=== PATIENT | male | born 1965 | race Caucasian/White ===

== ENCOUNTER 2018-02-03 13:18 | Emergency (ER) | payer MEDICAID, MEDICARE, SELFPAY ==
[~2018-02-03] VITALS: Ht 177.8 cm; Wt 100.0 kg
[2018-02-03] MEDS ORDERED: LORazepam 2 MG/ML, 1ML ONE (13:43)
[2018-02-03 13:54] LABS: BASOPHILS # (AUTO) 0.08 x10^3/uL (0-0.1); BASOPHILS % (AUTO) 1 % (0-1); EOSINOPHILS # (AUTO) 0.29 x10^3/uL (0-0.4); EOSINOPHILS % (AUTO) 3 % (1-7); LYMPHOCYTES # (AUTO) 1.64 x10^3/uL (1-3.4); LYMPHOCYTES % (AUTO) 14 % (22-44); MD NO; MEAN CORPUSCULAR HEMOGLOBIN 29.9 pg (27.5-34.5); MEAN CORPUSCULAR HGB CONC 33.5 g/dL (33.2-36.2); MEAN CORPUSCULAR VOLUME 89.3 fL (81-97); MEAN PLATELET VOLUME 7.9 fL (7.4-10.4); MONOCYTES # (AUTO) 0.72 x10^3/uL (0.2-0.8); MONOCYTES % (AUTO) 6 % (2-9); NEUTROPHILS # (AUTO) 8.68 x10^3/uL (1.8-6.8); NEUTROPHILS % (AUTO) 76 % (42-75); PLATELET COUNT 321 x10^3/uL (130-400); RED BLOOD COUNT 5.77 x10^6/uL (4.38-5.82); RED CELL DISTRIBUTION WIDTH 14.6 % (9.4-14.8)
[2018-02-03] MEDS ORDERED: LORazepam 2 MG/ML, 1ML IM ONE (14:00)
[2018-02-03 14:09] LABS: ALBUMIN 3.9 g/dL (3.4-5.0); ANION GAP 8 mmol/L (5-15); CALCIUM 8.6 mg/dL (8.5-10.1); CHLORIDE 112 mmol/L (98-107)
[2018-02-03 14:12] LABS: ALANINE AMINOTRANSFERASE 27 U/L (12-78); ALKALINE PHOSPHATASE 115 U/L (45-117); BILIRUBIN,TOTAL 0.6 mg/dL (0.2-1.0); CREATININE 0.88 mg/dL (0.7-1.3)
[2018-02-03 14:16] LABS: TROPONIN I < 0.015 ng/mL (0.000-0.045)
[2018-02-03] MEDS ORDERED: LORazepam 1MG TABLET PO ONE (15:30)
[2018-02-03 15:34] LABS: AMPHETAMINE SCREEN, URINE Negative (Negative); BARBITURATE SCREEN, URINE Negative (Negative); BENZODIAZEPINE SCREEN, URINE Positive (Negative); CANNABINOID SCREEN, URINE Positive (Negative); COCAINE SCREEN, URINE Negative (Negative); METHADONE SCREEN, URINE Negative (Negative); OPIATE SCREEN, URINE Negative (Negative)
[2018-02-03] MEDS ORDERED: LORazepam 1MG TABLET ONE (15:46)
[2018-02-03 16:24] VITALS: BP 124/92
== END 2018-02-03 16:45 | disposition home or self-care (01) ==
LOC: ED 16:40
DX: G24.01 Drug induced subacute dyskinesia (principal); T43.4X5A Adverse effect of butyrophenone and thiothixene neuroleptics, initial encounter; F20.9 Schizophrenia, unspecified; F17.210 Nicotine dependence, cigarettes, uncomplicated; R05 Cough; R50.9 Fever, unspecified; Z79.899 Other long term (current) drug therapy; Y92.89 Other specified places as the place of occurrence of the external cause
CPT/HCPCS: 36415; 71045; 80053; 80307; 84484; 85025; 93005; 96372; 99285; J2060

== ENCOUNTER 2018-11-30 22:14 | Inpatient (IN) | payer MEDICAID ==
[~2018-11-30] VITALS: Ht 182.9 cm; Wt 96.5 kg
[2018-12-10 07:41] VITALS: BP 109/65
== END 2018-12-10 10:30 | disposition home or self-care (01) | DRG 750 ==
LOC: 3E 23:09
PROVIDERS: ADMIT Psychiatry & Neurology Psychosomatic Medicine; ATTEND Psychiatry & Neurology Psychosomatic Medicine
DX: F20.0 Paranoid schizophrenia (principal); R45.851 Suicidal ideations; F13.20 Sedative, hypnotic or anxiolytic dependence, uncomplicated; E03.9 Hypothyroidism, unspecified; E78.5 Hyperlipidemia, unspecified; F12.20 Cannabis dependence, uncomplicated; F17.200 Nicotine dependence, unspecified, uncomplicated; F32.9 Major depressive disorder, single episode, unspecified; G47.00 Insomnia, unspecified; J44.9 Chronic obstructive pulmonary disease, unspecified; Z79.899 Other long term (current) drug therapy; Z82.49 Family history of ischemic heart disease and other diseases of the circulatory system; Z88.0 Allergy status to penicillin; Z88.8 Allergy status to other drugs, medicaments and biological substances
CPT/HCPCS: 36415; 71045; 80061; 81003; 82140; 82607; 84439; 84443; 85651; 86592; 93005; 94640; J7613; J7626

== ENCOUNTER 2019-11-12 09:07 | Inpatient (IN) | payer MEDICAID ==
[~2019-11-12] VITALS: Ht 182.9 cm; Wt 83.9 kg
[~2019-11-12 09:07] MED LIST: ALBU6.7H8 INH; ATOR20TA37 PO; CYCL-259 PO; DEUT12TA PO; DIAZ10TA4 PO; FLUT1AER INH; LEVO25TA2 PO; LEVO25TA4 PO; NICO-487 TD; PARO20TA4 PO; PARO20TA98 PO; QUET200T PO; QUET25TA7 PO; RANI300C PO; TIOT18CA INH; TRAZ-175 PO; TRAZ5POW PO; TRIH2TAB3 PO; ZIPR80CA2 PO
--- NOTE | 2019-11-12 09:51 | NUR ---
Pt resting on gurney connected to NIBP cuff, cardiac monitors, and pulse ox. Pt has chronic bronchitis pmh and a "smokers cough". Pt has psych pmh and his healthcare advocate at bedside with pt's verbal consent. Pt has lost 30 lbs in the last three weeks from decreased appetite related to caregiver absences. Pt is a poor historian. Bedrails up x 2, call light within reach. Caregiver at bedside. Provided bedside report to BRENDA Wagner. All questions answered. BRENDA Wagner to assume care at this time.
[2019-11-12] MEDS ORDERED: SODIUM CHLORIDE 0.9% 1,000ML IVBOLUS ONE ×2 (10:00→11:30)
[2019-11-12] MEDS ORDERED: SODIUM CHLORIDE FLUSH 10ML SYR IVF ONE (10:00)
[2019-11-12 10:39] LABS: BASOPHILS # (AUTO) 0.05 x10^3/uL (0-0.1); BASOPHILS % (AUTO) 0 % (0-1); EOSINOPHILS # (AUTO) 0.34 x10^3/uL (0-0.4); EOSINOPHILS % (AUTO) 3 % (1-7); LYMPHOCYTES # (AUTO) 1.54 x10^3/uL (1-3.4); LYMPHOCYTES % (AUTO) 14 % (22-44); MD NO; MEAN CORPUSCULAR HEMOGLOBIN 30.4 pg (27.5-34.5); MEAN CORPUSCULAR HGB CONC 33.1 g/dL (33.2-36.2); MEAN CORPUSCULAR VOLUME 91.9 fL (81-97); MEAN PLATELET VOLUME 10.6 fL (7.4-10.4); MONOCYTES % (AUTO) 8 % (2-9); NEUTROPHILS # (AUTO) 8.46 x10^3/uL (1.8-6.8); NEUTROPHILS % (AUTO) 75 % (42-75); PLATELET COUNT 209 x10^3/uL (130-400); RED BLOOD COUNT 5.63 x10^6/uL (4.38-5.82)
[2019-11-12 10:51] LABS: ANION GAP 8 mmol/L (5-15); CALCIUM 9.5 mg/dL (8.5-10.1); CHLORIDE 108 mmol/L (98-107); CREATININE 1.12 mg/dL (0.7-1.3)
[2019-11-12 10:52] LABS: ALANINE AMINOTRANSFERASE 16 U/L (12-78)
[2019-11-12 10:56] LABS: ALKALINE PHOSPHATASE 84 U/L (45-117); BILIRUBIN,TOTAL 1.4 mg/dL (0.2-1.0); TOTAL PROTEIN 7.5 g/dL (6.4-8.2); TROPONIN I < 0.015 ng/mL (0.000-0.045)
[2019-11-12] MEDS ORDERED: POTASSIUM CHLORIDE 20 MEQ PACKET ONE (11:23)
[2019-11-12] MEDS ORDERED: POTASSIUM CHLORIDE 20 MEQ PACKET PO ONE (11:30)
--- NOTE | 2019-11-12 11:30 | NUR ---
PT MEDICATED PER JUN. RESTING IN [facility]. VSS. NAD. PT EDUCATED ON PLAN OF CARE
[2019-11-12] MEDS: SODIUM CHLORIDE 0.9% 1,000 ML IV SCH ×2 (12:10→23:49)
--- NOTE | 2019-11-12 12:29 | NUR ---
PT RESTING IN [facility]. TBADM. EKG COMPLETE
[2019-11-12] MEDS ORDERED: POTASSIUM CHLORIDE 20 MEQ TAB.ER.PRT PO ONE (12:30)
[2019-11-12] MEDS ORDERED: CYCLOBENZAPRINE 10 MG TABLET PO PRN (12:30)
[2019-11-12] MEDS ORDERED: ONDANSETRON 2MG/ML, 2ML IVPush PRN (12:30)
[2019-11-12] MEDS ORDERED: ONDANSETRON ODT 4 MG PO PRN (12:30)
[2019-11-12] MEDS ORDERED: TRAZODONE 100MG TABLET PO PRN (14:00)
[2019-11-12 14:18] VITALS: BP 94/58
[2019-11-12] MEDS: QUETIAPINE 25MG TABLET PO SCH (14:22)
[2019-11-12] MEDS: HEPARIN 5,000 UNITS/ML, 1ML SQ SCH ×2 (14:22→23:48)
[2019-11-12] MEDS ORDERED: ALBUTEROL INH PRN (14:30)
[2019-11-12] MEDS: ALBUTEROL HFA 90 MCG/SPRAY INH SCH ×3 (15:16→23:00)
[2019-11-12] MEDS ORDERED: DIAZEPAM 10 MG TABLET ONE (16:54)
[2019-11-12] MEDS: DIAZEPAM 10 MG TABLET PO SCH ×2 (16:56→20:48)
[2019-11-12 20:40] VITALS: BP 94/63
[2019-11-12 20:43] VITALS: BP 81/51
[2019-11-12 20:44] VITALS: BP 70/47
[2019-11-12] MEDS: TRIHEXYPHENIDYL 2MG TABLET PO SCH (20:47)
[2019-11-12] MEDS: FAMOTIDINE 40 MG TABLET PO SCH (20:48)
[2019-11-12] MEDS: ATORVASTATIN 20 MG TABLET PO SCH (20:49)
[2019-11-12] MEDS: DEUTETRABENAZINE HOMEMEDPO SCH (20:50)
[2019-11-12] MEDS ORDERED: TRAZODONE 150MG TABLET PO SCH (21:00)
[2019-11-12] MEDS ORDERED: QUETIAPINE 200 MG TABLET PO SCH (21:00)
[2019-11-12] MEDS ORDERED: TRAZODONE 100MG TABLET PO SCH (21:00)
[2019-11-12] MEDS ORDERED: ZIPRASIDONE 40MG CAPSULE PO SCH (21:00)
[2019-11-12] MEDS ORDERED: HEPARIN 5,000 UNITS/ML, 1ML ONE (22:05)
[2019-11-12] MEDS ORDERED: QUETIAPINE 25MG TABLET ONE (22:10)
[2019-11-12 22:37] LABS: MICROSCOPIC INDICATED
[2019-11-13] MEDS: ALBUTEROL HFA 90 MCG/SPRAY INH SCH ×6 (03:00→23:00)
[2019-11-13 03:15] VITALS: BP 94/64
[2019-11-13 04:37] LABS: BASOPHILS # (AUTO) 0.05 x10^3/uL (0-0.1); BASOPHILS % (AUTO) 1 % (0-1); EOSINOPHILS # (AUTO) 0.45 x10^3/uL (0-0.4); EOSINOPHILS % (AUTO) 6 % (1-7); LYMPHOCYTES # (AUTO) 2.51 x10^3/uL (1-3.4); LYMPHOCYTES % (AUTO) 31 % (22-44); MD NO; MEAN CORPUSCULAR HEMOGLOBIN 29.8 pg (27.5-34.5); MEAN CORPUSCULAR HGB CONC 31.8 g/dL (33.2-36.2); MEAN CORPUSCULAR VOLUME 93.6 fL (81-97); MEAN PLATELET VOLUME 9.2 fL (7.4-10.4); MONOCYTES # (AUTO) 0.73 x10^3/uL (0.2-0.8); MONOCYTES % (AUTO) 9 % (2-9); NEUTROPHILS # (AUTO) 4.29 x10^3/uL (1.8-6.8); NEUTROPHILS % (AUTO) 53 % (42-75); PLATELET COUNT 182 x10^3/uL (130-400); RED BLOOD COUNT 4.58 x10^6/uL (4.38-5.82)
[2019-11-13 04:46] LABS: ALANINE AMINOTRANSFERASE 10 U/L (12-78); ALBUMIN 2.6 g/dL (3.4-5.0); ANION GAP 4 mmol/L (5-15); CALCIUM 8.1 mg/dL (8.5-10.1); CHLORIDE 113 mmol/L (98-107); CREATININE 0.92 mg/dL (0.7-1.3)
[2019-11-13 04:48] LABS: ALKALINE PHOSPHATASE 55 U/L (45-117); BILIRUBIN,TOTAL 0.7 mg/dL (0.2-1.0); TOTAL PROTEIN 5.2 g/dL (6.4-8.2)
[2019-11-13] MEDS: LEVOTHYROXINE 25 MCG TABLET PO SCH (05:08)
[2019-11-13 06:09] VITALS: BP 90/61
[2019-11-13] MEDS ORDERED: POTASSIUM CHLORIDE 20 MEQ TAB.ER.PRT PO ONE (06:30)
[2019-11-13 07:13] VITALS: BP 97/70
[2019-11-13] MEDS: DIAZEPAM 10 MG TABLET PO SCH ×4 (09:00→22:15)
[2019-11-13] MEDS: PAROXETINE 20 MG TABLET PO SCH (09:00)
[2019-11-13] MEDS: DEUTETRABENAZINE HOMEMEDPO SCH ×2 (09:00→20:28)
[2019-11-13] MEDS ORDERED: SPIRIVA INH SCH (09:00)
[2019-11-13] MEDS: QUETIAPINE 25MG TABLET PO SCH ×2 (09:00→13:00)
[2019-11-13] MEDS: TIOTROPIUM BROMIDE 18 MCG/INH INH SCH (09:22)
[2019-11-13] MEDS: FAMOTIDINE 40 MG TABLET PO SCH ×2 (09:22→20:28)
[2019-11-13] MEDS: NICOTINE 21 MG/24 HR PATCH.TD24 TD SCH (09:24)
[2019-11-13] MEDS: SODIUM CHLORIDE 0.9% 1,000 ML IV SCH ×2 (09:25→19:18)
[2019-11-13] MEDS: FLUTICASONE/VILANTEROL 100-25MCG/INH INH SCH (10:31)
[2019-11-13] MEDS: HEPARIN 5,000 UNITS/ML, 1ML SQ SCH (11:48)
[2019-11-13 13:03] VITALS: BP 104/70
[2019-11-13] MEDS: ATORVASTATIN 20 MG TABLET PO SCH (20:28)
[2019-11-13] MEDS: TRIHEXYPHENIDYL 2MG TABLET PO SCH (20:28)
[2019-11-13 20:52] VITALS: BP 97/63
[2019-11-14] MEDS: HEPARIN 5,000 UNITS/ML, 1ML SQ SCH ×2 (00:42→12:30)
[2019-11-14 00:49] VITALS: BP 100/62
[2019-11-14] MEDS: ALBUTEROL HFA 90 MCG/SPRAY INH SCH ×6 (03:00→23:01)
[2019-11-14] MEDS: SODIUM CHLORIDE 0.9% 1,000 ML IV SCH (06:36)
[2019-11-14] MEDS: LEVOTHYROXINE 25 MCG TABLET PO SCH (06:37)
[2019-11-14 07:09] VITALS: BP 107/71
[2019-11-14] MEDS: FLUTICASONE/VILANTEROL 100-25MCG/INH INH SCH (09:00)
[2019-11-14] MEDS: TIOTROPIUM BROMIDE 18 MCG/INH INH SCH (09:00)
[2019-11-14] MEDS: DEUTETRABENAZINE HOMEMEDPO SCH ×2 (09:00→20:40)
[2019-11-14] MEDS: FAMOTIDINE 40 MG TABLET PO SCH ×2 (09:13→20:39)
[2019-11-14] MEDS: PAROXETINE 20 MG TABLET PO SCH (09:13)
[2019-11-14] MEDS: NICOTINE 21 MG/24 HR PATCH.TD24 TD SCH (09:13)
[2019-11-14 14:35] VITALS: BP 102/65
[2019-11-14] MEDS: DIAZEPAM 10 MG TABLET PO SCH ×2 (16:00→20:39)
[2019-11-14 19:23] VITALS: BP 108/71
[2019-11-14] MEDS: TRIHEXYPHENIDYL 2MG TABLET PO SCH (20:39)
[2019-11-14] MEDS: ATORVASTATIN 20 MG TABLET PO SCH (20:39)
[2019-11-14] MEDS: QUETIAPINE 25MG TABLET PO SCH (20:39)
[2019-11-15 00:21] VITALS: BP 107/75
[2019-11-15] MEDS: HEPARIN 5,000 UNITS/ML, 1ML SQ SCH ×2 (00:28→12:09)
[2019-11-15 00:29] VITALS: BP 104/72
[2019-11-15 00:34] VITALS: BP 104/65
[2019-11-15] MEDS: ALBUTEROL HFA 90 MCG/SPRAY INH SCH ×6 (04:16→23:08)
[2019-11-15] MEDS: LEVOTHYROXINE 25 MCG TABLET PO SCH (05:22)
[2019-11-15 07:10] VITALS: BP 94/68
[2019-11-15] MEDS: FAMOTIDINE 40 MG TABLET PO SCH ×2 (08:04→20:25)
[2019-11-15] MEDS: QUETIAPINE 25MG TABLET PO SCH ×2 (08:04→20:25)
[2019-11-15] MEDS: NICOTINE 21 MG/24 HR PATCH.TD24 TD SCH (08:04)
[2019-11-15] MEDS: DIAZEPAM 10 MG TABLET PO SCH ×3 (08:04→20:24)
[2019-11-15] MEDS: PAROXETINE 20 MG TABLET PO SCH (08:04)
[2019-11-15] MEDS: DEUTETRABENAZINE HOMEMEDPO SCH ×2 (08:05→20:25)
[2019-11-15] MEDS: FLUTICASONE/VILANTEROL 100-25MCG/INH INH SCH (08:05)
[2019-11-15] MEDS: TIOTROPIUM BROMIDE 18 MCG/INH INH SCH (08:05)
[2019-11-15 12:38] VITALS: BP 89/50
[2019-11-15] MEDS: ACETAMINOPHEN 325 MG TABLET PO PRN (13:18)
[2019-11-15 19:08] VITALS: BP 96/68
[2019-11-15] MEDS: TRIHEXYPHENIDYL 2MG TABLET PO SCH (20:24)
[2019-11-15] MEDS: ATORVASTATIN 20 MG TABLET PO SCH (20:24)
[2019-11-16] MEDS: HEPARIN 5,000 UNITS/ML, 1ML SQ SCH ×3 (00:39→23:10)
[2019-11-16 01:04] VITALS: BP 100/61
[2019-11-16] MEDS: ALBUTEROL HFA 90 MCG/SPRAY INH SCH ×6 (02:53→23:10)
[2019-11-16] MEDS: LEVOTHYROXINE 25 MCG TABLET PO SCH (05:44)
[2019-11-16 07:11] VITALS: BP 120/82
[2019-11-16] MEDS: DEUTETRABENAZINE HOMEMEDPO SCH ×2 (08:06→21:00)
[2019-11-16] MEDS: FLUTICASONE/VILANTEROL 100-25MCG/INH INH SCH (08:06)
[2019-11-16] MEDS: PAROXETINE 20 MG TABLET PO SCH (08:07)
[2019-11-16] MEDS: DIAZEPAM 10 MG TABLET PO SCH ×3 (08:07→21:16)
[2019-11-16] MEDS: FAMOTIDINE 40 MG TABLET PO SCH ×2 (08:07→21:16)
[2019-11-16] MEDS: QUETIAPINE 25MG TABLET PO SCH ×2 (08:07→21:17)
[2019-11-16] MEDS: NICOTINE 21 MG/24 HR PATCH.TD24 TD SCH (08:07)
[2019-11-16] MEDS: TIOTROPIUM BROMIDE 18 MCG/INH INH SCH (09:22)
[2019-11-16 12:29] VITALS: BP 107/75
[2019-11-16 12:30] VITALS: BP_SYST 108; BP_SYST 96; BP_DIAS 72; BP_DIAS 80
[2019-11-16 19:55] VITALS: BP 96/61
[2019-11-16] MEDS: ATORVASTATIN 20 MG TABLET PO SCH (21:16)
[2019-11-16] MEDS: TRIHEXYPHENIDYL 2MG TABLET PO SCH (21:16)
[2019-11-17] VITALS (8 sets, daily range): BP systolic 79–106; BP diastolic 51–74
[2019-11-17] MEDS: ALBUTEROL HFA 90 MCG/SPRAY INH SCH ×5 (02:46→20:03)
[2019-11-17] MEDS: LEVOTHYROXINE 25 MCG TABLET PO SCH (05:13)
[2019-11-17] MEDS: PAROXETINE 20 MG TABLET PO SCH (08:56)
[2019-11-17] MEDS: FAMOTIDINE 40 MG TABLET PO SCH ×2 (08:56→20:02)
[2019-11-17] MEDS: QUETIAPINE 25MG TABLET PO SCH ×2 (08:56→20:03)
[2019-11-17] MEDS: DIAZEPAM 10 MG TABLET PO SCH ×3 (08:56→20:02)
[2019-11-17] MEDS: DEUTETRABENAZINE HOMEMEDPO SCH ×2 (08:57→20:03)
[2019-11-17] MEDS: NICOTINE 21 MG/24 HR PATCH.TD24 TD SCH (08:57)
[2019-11-17] MEDS: FLUTICASONE/VILANTEROL 100-25MCG/INH INH SCH (08:59)
[2019-11-17] MEDS: TIOTROPIUM BROMIDE 18 MCG/INH INH SCH (08:59)
[2019-11-17] MEDS: HEPARIN 5,000 UNITS/ML, 1ML SQ SCH (12:02)
[2019-11-17] MEDS: ACETAMINOPHEN 325 MG TABLET PO PRN (12:26)
[2019-11-17] MEDS ORDERED: MECLIZINE 25 MG TABLET PO PRN (12:30)
[2019-11-17] MEDS: ASPIRIN 81 MG TABLET CHEW PO SCH (13:10)
[2019-11-17 13:56] LABS: TROPONIN I 0.082 ng/mL (0.000-0.045)
[2019-11-17] MEDS ORDERED: HEPARIN 5,000 UNITS/ML, 1ML IV ONE (15:00)
[2019-11-17] MEDS ORDERED: HEPARIN 25,000 UNITS/250ML PMX 250 ML IV PRN (15:00)
[2019-11-17 19:13] LABS: TROPONIN I 0.078 ng/mL (0.000-0.045)
[2019-11-17] MEDS: TRIHEXYPHENIDYL 2MG TABLET PO SCH (20:02)
[2019-11-17] MEDS: ATORVASTATIN 80 MG TABLET PO SCH (20:02)
[2019-11-17] MEDS ORDERED: ATORVASTATIN 40 MG TABLET PO SCH (21:00)
[2019-11-18] MEDS: ALBUTEROL HFA 90 MCG/SPRAY INH SCH ×6 (00:13→21:12)
[2019-11-18 00:48] LABS: TROPONIN I 0.055 ng/mL (0.000-0.045)
[2019-11-18 02:11] VITALS: BP 101/76
[2019-11-18 04:12] LABS: ALBUMIN 2.3 g/dL (3.4-5.0); ANION GAP 4 mmol/L (5-15); CALCIUM 8.1 mg/dL (8.5-10.1); CHLORIDE 112 mmol/L (98-107)
[2019-11-18 04:14] LABS: BASOPHILS # (AUTO) 0.05 x10^3/uL (0-0.1); BASOPHILS % (AUTO) 1 % (0-1); EOSINOPHILS # (AUTO) 0.52 x10^3/uL (0-0.4); EOSINOPHILS % (AUTO) 6 % (1-7); LYMPHOCYTES # (AUTO) 1.28 x10^3/uL (1-3.4); LYMPHOCYTES % (AUTO) 16 % (22-44); MD NO; MEAN CORPUSCULAR HEMOGLOBIN 30.1 pg (27.5-34.5); MEAN CORPUSCULAR HGB CONC 32.8 g/dL (33.2-36.2); MEAN CORPUSCULAR VOLUME 91.9 fL (81-97); MEAN PLATELET VOLUME 9.2 fL (7.4-10.4); MONOCYTES # (AUTO) 0.85 x10^3/uL (0.2-0.8); MONOCYTES % (AUTO) 10 % (2-9); NEUTROPHILS # (AUTO) 5.45 x10^3/uL (1.8-6.8); NEUTROPHILS % (AUTO) 67 % (42-75); PLATELET COUNT 133 x10^3/uL (130-400); RED BLOOD COUNT 4.47 x10^6/uL (4.38-5.82); RED CELL DISTRIBUTION WIDTH 14.7 % (9.4-14.8)
[2019-11-18 04:15] LABS: ALANINE AMINOTRANSFERASE 14 U/L (12-78); ALKALINE PHOSPHATASE 58 U/L (45-117); BILIRUBIN,TOTAL 0.3 mg/dL (0.2-1.0); CREATININE 0.65 mg/dL (0.7-1.3); TOTAL PROTEIN 5.5 g/dL (6.4-8.2)
[2019-11-18] MEDS: HEPARIN 5,000 UNITS/ML, 1ML IV PRN (04:16)
[2019-11-18] MEDS: LEVOTHYROXINE 25 MCG TABLET PO SCH (05:17)
[2019-11-18 07:45] VITALS: BP 103/66
[2019-11-18] MEDS: FLUTICASONE/VILANTEROL 100-25MCG/INH INH SCH (08:43)
[2019-11-18] MEDS: FAMOTIDINE 40 MG TABLET PO SCH ×2 (08:43→21:12)
[2019-11-18] MEDS: TIOTROPIUM BROMIDE 18 MCG/INH INH SCH (08:43)
[2019-11-18] MEDS: ASPIRIN 81 MG TABLET CHEW PO SCH (08:44)
[2019-11-18] MEDS: PAROXETINE 20 MG TABLET PO SCH (08:44)
[2019-11-18] MEDS: NICOTINE 21 MG/24 HR PATCH.TD24 TD SCH (08:45)
[2019-11-18] MEDS: QUETIAPINE 25MG TABLET PO SCH ×2 (08:45→21:12)
[2019-11-18] MEDS: DIAZEPAM 10 MG TABLET PO SCH ×3 (08:45→21:12)
[2019-11-18] MEDS: DEUTETRABENAZINE HOMEMEDPO SCH ×2 (08:56→21:00)
[2019-11-18 10:42] LABS: TROPONIN I 0.042 ng/mL (0.000-0.045)
[2019-11-18 14:39] VITALS: BP 102/65
[2019-11-18] MEDS ORDERED: REGADENOSON 0.4 MG/5 ML SYRINGE ONE (15:45)
[2019-11-18 19:49] VITALS: BP 91/54
[2019-11-18] MEDS: TRIHEXYPHENIDYL 2MG TABLET PO SCH (21:12)
[2019-11-18] MEDS: ATORVASTATIN 80 MG TABLET PO SCH (21:12)
[2019-11-18 21:16] VITALS: BP 96/68
[2019-11-19 00:37] VITALS: BP 91/60
[2019-11-19] MEDS: ALBUTEROL HFA 90 MCG/SPRAY INH SCH ×6 (01:18→21:18)
[2019-11-19] MEDS: LEVOTHYROXINE 25 MCG TABLET PO SCH (05:26)
[2019-11-19] MEDS: HEPARIN 5,000 UNITS/ML, 1ML IV PRN (05:27)
[2019-11-19 06:16] VITALS: BP 103/67
[2019-11-19] MEDS: DEUTETRABENAZINE HOMEMEDPO SCH ×2 (08:19→21:00)
[2019-11-19] MEDS: FLUTICASONE/VILANTEROL 100-25MCG/INH INH SCH (08:20)
[2019-11-19] MEDS: TIOTROPIUM BROMIDE 18 MCG/INH INH SCH (08:20)
[2019-11-19] MEDS: QUETIAPINE 25MG TABLET PO SCH (08:22)
[2019-11-19] MEDS: NICOTINE 21 MG/24 HR PATCH.TD24 TD SCH (08:22)
[2019-11-19] MEDS: ASPIRIN 81 MG TABLET CHEW PO SCH (08:23)
[2019-11-19] MEDS: FAMOTIDINE 40 MG TABLET PO SCH ×2 (08:23→21:18)
[2019-11-19] MEDS: PAROXETINE 20 MG TABLET PO SCH (08:23)
[2019-11-19] MEDS: DIAZEPAM 10 MG TABLET PO SCH ×3 (08:23→21:18)
[2019-11-19] MEDS: ENOXAPARIN 40 MG/0.4 ML SQ SCH (09:14)
[2019-11-19 13:21] VITALS: BP 98/69
[2019-11-19 20:10] VITALS: BP 90/59
[2019-11-19] MEDS: TRIHEXYPHENIDYL 2MG TABLET PO SCH (21:18)
[2019-11-20 00:56] VITALS: BP 95/56
[2019-11-20] MEDS: ALBUTEROL HFA 90 MCG/SPRAY INH SCH ×7 (01:23→23:35)
[2019-11-20] MEDS: LEVOTHYROXINE 25 MCG TABLET PO SCH (05:22)
[2019-11-20 06:40] VITALS: BP 123/79
[2019-11-20] MEDS: FLUTICASONE/VILANTEROL 100-25MCG/INH INH SCH (08:15)
[2019-11-20] MEDS: ENOXAPARIN 40 MG/0.4 ML SQ SCH (08:15)
[2019-11-20] MEDS: PAROXETINE 20 MG TABLET PO SCH (08:16)
[2019-11-20] MEDS: TIOTROPIUM BROMIDE 18 MCG/INH INH SCH (08:16)
[2019-11-20] MEDS: DEUTETRABENAZINE HOMEMEDPO SCH ×2 (08:16→20:24)
[2019-11-20] MEDS: NICOTINE 21 MG/24 HR PATCH.TD24 TD SCH (08:16)
[2019-11-20] MEDS: ASPIRIN 81 MG TABLET CHEW PO SCH (08:17)
[2019-11-20] MEDS: DIAZEPAM 10 MG TABLET PO SCH ×3 (08:17→20:23)
[2019-11-20] MEDS: FAMOTIDINE 40 MG TABLET PO SCH ×2 (08:17→20:23)
[2019-11-20] MEDS: MAGNESIUM CITRATE 300ML ORAL SOL PO PRN (10:57)
[2019-11-20 12:03] VITALS: BP 108/76
[2019-11-20 18:55] VITALS: BP 100/61
[2019-11-20] MEDS: TRIHEXYPHENIDYL 2MG TABLET PO SCH (20:24)
[2019-11-21 00:58] VITALS: BP 103/63
[2019-11-21] MEDS: ALBUTEROL HFA 90 MCG/SPRAY INH SCH ×5 (03:32→20:47)
[2019-11-21] MEDS: LEVOTHYROXINE 25 MCG TABLET PO SCH (05:24)
[2019-11-21 07:23] VITALS: BP 121/84
[2019-11-21] MEDS: DEUTETRABENAZINE HOMEMEDPO SCH ×2 (07:44→20:47)
[2019-11-21] MEDS: FAMOTIDINE 40 MG TABLET PO SCH ×2 (09:22→20:46)
[2019-11-21] MEDS: NICOTINE 21 MG/24 HR PATCH.TD24 TD SCH (09:22)
[2019-11-21] MEDS: DIAZEPAM 10 MG TABLET PO SCH ×3 (09:22→20:46)
[2019-11-21] MEDS: FLUTICASONE/VILANTEROL 100-25MCG/INH INH SCH (09:22)
[2019-11-21] MEDS: ENOXAPARIN 40 MG/0.4 ML SQ SCH (09:22)
[2019-11-21] MEDS: PAROXETINE 20 MG TABLET PO SCH (09:23)
[2019-11-21] MEDS: TIOTROPIUM BROMIDE 18 MCG/INH INH SCH (09:48)
[2019-11-21] MEDS: ASPIRIN 81 MG TABLET CHEW PO SCH (09:48)
[2019-11-21 12:41] VITALS: BP 102/68
[2019-11-21 20:24] VITALS: BP 106/78
[2019-11-21] MEDS: TRIHEXYPHENIDYL 2MG TABLET PO SCH (20:47)
[2019-11-21] MEDS: MAGNESIUM CITRATE 300ML ORAL SOL PO PRN (21:45)
[2019-11-22 00:44] VITALS: BP 102/70
[2019-11-22] MEDS: ALBUTEROL HFA 90 MCG/SPRAY INH SCH ×5 (04:00→15:11)
[2019-11-22] MEDS: LEVOTHYROXINE 25 MCG TABLET PO SCH (05:50)
[2019-11-22 06:37] LABS: CREATININE 0.94 mg/dL (0.7-1.3)
[2019-11-22 07:31] VITALS: BP 99/66
[2019-11-22] MEDS: NICOTINE 21 MG/24 HR PATCH.TD24 TD SCH (07:35)
[2019-11-22] MEDS: TIOTROPIUM BROMIDE 18 MCG/INH INH SCH (07:35)
[2019-11-22] MEDS: FLUTICASONE/VILANTEROL 100-25MCG/INH INH SCH (07:38)
[2019-11-22] MEDS: PAROXETINE 20 MG TABLET PO SCH (07:38)
[2019-11-22] MEDS: TRIHEXYPHENIDYL 2MG TABLET PO SCH ×2 (07:38→20:44)
[2019-11-22] MEDS: DIAZEPAM 10 MG TABLET PO SCH ×3 (07:39→20:44)
[2019-11-22] MEDS: FAMOTIDINE 40 MG TABLET PO SCH ×2 (07:39→20:44)
[2019-11-22] MEDS: ENOXAPARIN 40 MG/0.4 ML SQ SCH (07:39)
[2019-11-22] MEDS: ASPIRIN 81 MG TABLET CHEW PO SCH (07:39)
[2019-11-22] MEDS: DEUTETRABENAZINE HOMEMEDPO SCH ×2 (09:04→19:15)
[2019-11-22 12:12] VITALS: BP 190/95
[2019-11-22 13:56] VITALS: BP 95/65
[2019-11-22 20:09] VITALS: BP 100/69
[2019-11-23] MEDS: LEVOTHYROXINE 25 MCG TABLET PO SCH (05:36)
[2019-11-23 08:03] VITALS: BP 91/61
[2019-11-23] MEDS: DEUTETRABENAZINE HOMEMEDPO SCH ×2 (08:46→20:36)
[2019-11-23] MEDS: ALBUTEROL HFA 90 MCG/SPRAY INH PRN ×2 (08:53→20:42)
[2019-11-23] MEDS: FLUTICASONE/VILANTEROL 100-25MCG/INH INH SCH (08:54)
[2019-11-23] MEDS: TIOTROPIUM BROMIDE 18 MCG/INH INH SCH (08:54)
[2019-11-23] MEDS: ENOXAPARIN 40 MG/0.4 ML SQ SCH (08:55)
[2019-11-23] MEDS: FAMOTIDINE 40 MG TABLET PO SCH ×2 (08:55→20:36)
[2019-11-23] MEDS: DIAZEPAM 10 MG TABLET PO SCH ×3 (08:55→20:36)
[2019-11-23] MEDS: PAROXETINE 20 MG TABLET PO SCH (08:55)
[2019-11-23] MEDS: ASPIRIN 81 MG TABLET CHEW PO SCH (08:55)
[2019-11-23] MEDS: TRIHEXYPHENIDYL 2MG TABLET PO SCH (08:55)
[2019-11-23] MEDS: NICOTINE 21 MG/24 HR PATCH.TD24 TD SCH (08:57)
[2019-11-23 14:09] VITALS: BP 116/72
[2019-11-23] MEDS: BENZTROPINE 1 MG TABLET PO SCH ×2 (16:23→19:04)
[2019-11-23] MEDS ORDERED: LORazepam 2 MG/ML, 1ML IM ONE (18:00)
[2019-11-23 18:32] VITALS: BP 94/58
[2019-11-23] MEDS: OLANZAPINE 10 MG TABLET PO SCH (20:36)
[2019-11-24 00:57] VITALS: BP 101/68
[2019-11-24] MEDS: LEVOTHYROXINE 25 MCG TABLET PO SCH (06:13)
[2019-11-24] MEDS: FLUTICASONE/VILANTEROL 100-25MCG/INH INH SCH (08:26)
[2019-11-24] MEDS: BENZTROPINE 1 MG TABLET PO SCH ×2 (08:26→21:18)
[2019-11-24] MEDS: DIAZEPAM 10 MG TABLET PO SCH ×3 (08:26→21:18)
[2019-11-24] MEDS: FAMOTIDINE 40 MG TABLET PO SCH ×2 (08:27→21:18)
[2019-11-24] MEDS: ASPIRIN 81 MG TABLET CHEW PO SCH (08:27)
[2019-11-24] MEDS: ENOXAPARIN 40 MG/0.4 ML SQ SCH (08:27)
[2019-11-24] MEDS: NICOTINE 21 MG/24 HR PATCH.TD24 TD SCH (08:29)
[2019-11-24 08:34] VITALS: BP 102/72
[2019-11-24] MEDS: TIOTROPIUM BROMIDE 18 MCG/INH INH SCH (08:34)
[2019-11-24] MEDS: PAROXETINE 20 MG TABLET PO SCH (08:35)
[2019-11-24] MEDS: DEUTETRABENAZINE HOMEMEDPO SCH ×2 (08:37→21:00)
[2019-11-24 13:12] VITALS: BP 106/74
[2019-11-24 19:29] VITALS: BP 111/78
[2019-11-24] MEDS: OLANZAPINE 10 MG TABLET PO SCH (21:18)
[2019-11-25 02:36] VITALS: BP 114/79
[2019-11-25] MEDS: LEVOTHYROXINE 25 MCG TABLET PO SCH (05:48)
[2019-11-25 08:48] VITALS: BP 108/79
[2019-11-25] MEDS: DEUTETRABENAZINE HOMEMEDPO SCH ×2 (08:51→20:48)
[2019-11-25] MEDS: FLUTICASONE/VILANTEROL 100-25MCG/INH INH SCH (08:52)
[2019-11-25] MEDS: ALBUTEROL HFA 90 MCG/SPRAY INH PRN (08:52)
[2019-11-25] MEDS: TIOTROPIUM BROMIDE 18 MCG/INH INH SCH (08:52)
[2019-11-25] MEDS: ASPIRIN 81 MG TABLET CHEW PO SCH (08:53)
[2019-11-25] MEDS: DIAZEPAM 10 MG TABLET PO SCH ×3 (08:53→20:47)
[2019-11-25] MEDS: BENZTROPINE 1 MG TABLET PO SCH ×2 (08:53→20:47)
[2019-11-25] MEDS: PAROXETINE 20 MG TABLET PO SCH (08:53)
[2019-11-25] MEDS: NICOTINE 21 MG/24 HR PATCH.TD24 TD SCH (08:53)
[2019-11-25] MEDS: FAMOTIDINE 40 MG TABLET PO SCH ×2 (08:53→20:47)
[2019-11-25] MEDS: ENOXAPARIN 40 MG/0.4 ML SQ SCH (08:53)
[2019-11-25 12:05] VITALS: BP 105/72
[2019-11-25 20:00] VITALS: BP 104/69
[2019-11-25] MEDS: OLANZAPINE 10 MG TABLET PO SCH (20:47)
[2019-11-26 01:28] VITALS: BP 99/69
[2019-11-26] MEDS: LEVOTHYROXINE 25 MCG TABLET PO SCH (06:10)
[2019-11-26 07:44] VITALS: BP 103/69
[2019-11-26] MEDS: PAROXETINE 20 MG TABLET PO SCH (10:09)
[2019-11-26] MEDS: TIOTROPIUM BROMIDE 18 MCG/INH INH SCH (10:09)
[2019-11-26] MEDS: DIAZEPAM 10 MG TABLET PO SCH ×3 (10:09→21:14)
[2019-11-26] MEDS: BENZTROPINE 1 MG TABLET PO SCH ×2 (10:09→21:14)
[2019-11-26] MEDS: ASPIRIN 81 MG TABLET CHEW PO SCH (10:09)
[2019-11-26] MEDS: FAMOTIDINE 40 MG TABLET PO SCH ×2 (10:09→21:14)
[2019-11-26] MEDS: ENOXAPARIN 40 MG/0.4 ML SQ SCH (10:10)
[2019-11-26] MEDS: FLUTICASONE/VILANTEROL 100-25MCG/INH INH SCH (10:10)
[2019-11-26] MEDS: DEUTETRABENAZINE HOMEMEDPO SCH ×2 (10:10→20:32)
[2019-11-26] MEDS: NICOTINE 21 MG/24 HR PATCH.TD24 TD SCH (10:10)
[2019-11-26 12:37] VITALS: BP 101/73
[2019-11-26 19:14] VITALS: BP 101/69
[2019-11-26] MEDS: OLANZAPINE 10 MG TABLET PO SCH (21:14)
[2019-11-27 02:14] VITALS: BP 112/78
[2019-11-27] MEDS: LEVOTHYROXINE 25 MCG TABLET PO SCH (05:17)
[2019-11-27] MEDS ORDERED: SENNA/DOCUSATE TABLET PO PRN (08:30)
[2019-11-27 08:58] VITALS: BP 112/78
[2019-11-27] MEDS: DEUTETRABENAZINE HOMEMEDPO SCH ×2 (09:00→21:00)
[2019-11-27] MEDS: FLUTICASONE/VILANTEROL 100-25MCG/INH INH SCH (09:26)
[2019-11-27] MEDS: TIOTROPIUM BROMIDE 18 MCG/INH INH SCH (09:26)
[2019-11-27] MEDS: ENOXAPARIN 40 MG/0.4 ML SQ SCH (09:29)
[2019-11-27] MEDS: ASPIRIN 81 MG TABLET CHEW PO SCH (09:31)
[2019-11-27] MEDS: PAROXETINE 20 MG TABLET PO SCH (09:31)
[2019-11-27] MEDS: DIAZEPAM 10 MG TABLET PO SCH ×3 (09:31→21:40)
[2019-11-27] MEDS: BENZTROPINE 1 MG TABLET PO SCH ×2 (09:31→21:40)
[2019-11-27] MEDS: FAMOTIDINE 40 MG TABLET PO SCH ×2 (09:31→21:40)
[2019-11-27] MEDS: NICOTINE 21 MG/24 HR PATCH.TD24 TD SCH (09:31)
[2019-11-27 13:08] VITALS: BP 120/81
[2019-11-27 18:46] VITALS: BP 101/65
[2019-11-27] MEDS: OLANZAPINE 10 MG TABLET PO SCH (21:40)
[2019-11-28 01:21] VITALS: BP 100/65
[2019-11-28] MEDS: LEVOTHYROXINE 25 MCG TABLET PO SCH (06:13)
[2019-11-28] MEDS: DEUTETRABENAZINE HOMEMEDPO SCH ×2 (07:36→21:00)
[2019-11-28 09:27] VITALS: BP 91/64
[2019-11-28] MEDS: ASPIRIN 81 MG TABLET CHEW PO SCH (09:32)
[2019-11-28] MEDS: PAROXETINE 20 MG TABLET PO SCH (09:33)
[2019-11-28] MEDS: BENZTROPINE 1 MG TABLET PO SCH ×2 (09:33→20:20)
[2019-11-28] MEDS: DIAZEPAM 10 MG TABLET PO SCH ×3 (09:34→20:20)
[2019-11-28] MEDS: FAMOTIDINE 40 MG TABLET PO SCH ×2 (09:36→20:20)
[2019-11-28] MEDS: NICOTINE 21 MG/24 HR PATCH.TD24 TD SCH (09:36)
[2019-11-28] MEDS: FLUTICASONE/VILANTEROL 100-25MCG/INH INH SCH (09:37)
[2019-11-28] MEDS: ACETAMINOPHEN 325 MG TABLET PO PRN (09:37)
[2019-11-28] MEDS: ENOXAPARIN 40 MG/0.4 ML SQ SCH (09:38)
[2019-11-28] MEDS: TIOTROPIUM BROMIDE 18 MCG/INH INH SCH (09:59)
[2019-11-28 13:38] VITALS: BP 100/67
[2019-11-28] MEDS: POLYETHYLENE GLYCOL 17 GM PACKET PO PRN (18:30)
[2019-11-28 19:38] VITALS: BP 100/68
[2019-11-28] MEDS: OLANZAPINE 10 MG TABLET PO SCH (20:20)
[2019-11-29 01:08] VITALS: BP 108/68
[2019-11-29] MEDS: LEVOTHYROXINE 25 MCG TABLET PO SCH (05:34)
[2019-11-29 06:07] LABS: CREATININE 0.99 mg/dL (0.7-1.3)
[2019-11-29 06:42] VITALS: BP 110/75
[2019-11-29] MEDS ORDERED: BISACODYL 10 MG SUPP PR PRN (07:30)
[2019-11-29] MEDS: DEUTETRABENAZINE HOMEMEDPO SCH ×2 (08:43→22:21)
[2019-11-29] MEDS: FLUTICASONE/VILANTEROL 100-25MCG/INH INH SCH (08:44)
[2019-11-29] MEDS: TIOTROPIUM BROMIDE 18 MCG/INH INH SCH (08:44)
[2019-11-29] MEDS: POLYETHYLENE GLYCOL 17 GM PACKET PO PRN (08:44)
[2019-11-29] MEDS: ENOXAPARIN 40 MG/0.4 ML SQ SCH (08:45)
[2019-11-29] MEDS: BENZTROPINE 1 MG TABLET PO SCH ×2 (08:46→22:21)
[2019-11-29] MEDS: FAMOTIDINE 40 MG TABLET PO SCH ×2 (08:46→22:20)
[2019-11-29] MEDS: PAROXETINE 20 MG TABLET PO SCH (08:46)
[2019-11-29] MEDS: DIAZEPAM 10 MG TABLET PO SCH ×3 (08:46→22:21)
[2019-11-29] MEDS: ASPIRIN 81 MG TABLET CHEW PO SCH (08:46)
[2019-11-29] MEDS: NICOTINE 21 MG/24 HR PATCH.TD24 TD SCH (08:52)
[2019-11-29] MEDS: MAGNESIUM HYDROXIDE 8%, 30ML UDC PO PRN (08:59)
[2019-11-29 12:37] VITALS: BP 110/81
[2019-11-29] MEDS: ACETAMINOPHEN 325 MG TABLET PO PRN (15:16)
[2019-11-29 19:36] VITALS: BP 105/72
[2019-11-29] MEDS: OLANZAPINE 10 MG TABLET PO SCH (22:20)
[2019-11-30 02:15] VITALS: BP 107/79
[2019-11-30] MEDS: LEVOTHYROXINE 25 MCG TABLET PO SCH (05:56)
[2019-11-30 06:40] VITALS: BP 112/76
[2019-11-30] MEDS: TIOTROPIUM BROMIDE 18 MCG/INH INH SCH (09:35)
[2019-11-30] MEDS: ENOXAPARIN 40 MG/0.4 ML SQ SCH (09:35)
[2019-11-30] MEDS: NICOTINE 21 MG/24 HR PATCH.TD24 TD SCH (09:35)
[2019-11-30] MEDS: DIAZEPAM 10 MG TABLET PO SCH ×3 (09:36→20:40)
[2019-11-30] MEDS: FLUTICASONE/VILANTEROL 100-25MCG/INH INH SCH (09:36)
[2019-11-30] MEDS: PAROXETINE 20 MG TABLET PO SCH (09:36)
[2019-11-30] MEDS: DEUTETRABENAZINE HOMEMEDPO SCH ×2 (09:36→19:45)
[2019-11-30] MEDS: BENZTROPINE 1 MG TABLET PO SCH ×2 (09:36→20:39)
[2019-11-30] MEDS: FAMOTIDINE 40 MG TABLET PO SCH ×2 (09:36→20:39)
[2019-11-30] MEDS: ASPIRIN 81 MG TABLET CHEW PO SCH (09:36)
[2019-11-30 13:25] VITALS: BP 94/63
[2019-11-30] MEDS: ACETAMINOPHEN 325 MG TABLET PO PRN (14:31)
[2019-11-30 19:51] VITALS: BP 94/60
[2019-11-30] MEDS: OLANZAPINE 10 MG TABLET PO SCH (20:39)
[2019-12-01 00:23] VITALS: BP 100/67
[2019-12-01] MEDS: LEVOTHYROXINE 25 MCG TABLET PO SCH (05:23)
[2019-12-01] MEDS: DIAZEPAM 10 MG TABLET PO SCH ×3 (08:15→21:02)
[2019-12-01] MEDS: ASPIRIN 81 MG TABLET CHEW PO SCH (08:15)
[2019-12-01] MEDS: FLUTICASONE/VILANTEROL 100-25MCG/INH INH SCH (08:15)
[2019-12-01] MEDS: FAMOTIDINE 40 MG TABLET PO SCH ×2 (08:15→21:02)
[2019-12-01] MEDS: BENZTROPINE 1 MG TABLET PO SCH ×2 (08:15→21:02)
[2019-12-01] MEDS: ENOXAPARIN 40 MG/0.4 ML SQ SCH (08:15)
[2019-12-01] MEDS: TIOTROPIUM BROMIDE 18 MCG/INH INH SCH (08:15)
[2019-12-01] MEDS: PAROXETINE 20 MG TABLET PO SCH (08:15)
[2019-12-01] MEDS: NICOTINE 21 MG/24 HR PATCH.TD24 TD SCH ×2 (08:16→08:20)
[2019-12-01] MEDS: DEUTETRABENAZINE HOMEMEDPO SCH ×2 (08:16→21:00)
[2019-12-01 09:48] VITALS: BP 107/74
[2019-12-01 15:29] VITALS: BP 96/58
[2019-12-01] MEDS: POLYETHYLENE GLYCOL 17 GM PACKET PO PRN (16:49)
[2019-12-01 18:52] VITALS: BP 94/57
[2019-12-01] MEDS: OLANZAPINE 10 MG TABLET PO SCH (21:02)
[2019-12-02 02:00] VITALS: BP 97/58
[2019-12-02 05:55] LABS: BASOPHILS # (AUTO) 0.07 x10^3/uL (0-0.1); BASOPHILS % (AUTO) 1 % (0-1); EOSINOPHILS # (AUTO) 0.74 x10^3/uL (0-0.4); EOSINOPHILS % (AUTO) 8 % (1-7); LYMPHOCYTES # (AUTO) 2.37 x10^3/uL (1-3.4); LYMPHOCYTES % (AUTO) 26 % (22-44); MD NO; MEAN CORPUSCULAR HEMOGLOBIN 30.4 pg (27.5-34.5); MEAN CORPUSCULAR HGB CONC 33.1 g/dL (33.2-36.2); MEAN PLATELET VOLUME 7.9 fL (7.4-10.4); MONOCYTES # (AUTO) 0.72 x10^3/uL (0.2-0.8); MONOCYTES % (AUTO) 8 % (2-9); NEUTROPHILS # (AUTO) 5.12 x10^3/uL (1.8-6.8); NEUTROPHILS % (AUTO) 57 % (42-75); PLATELET COUNT 341 x10^3/uL (130-400); RED BLOOD COUNT 4.88 x10^6/uL (4.38-5.82); RED CELL DISTRIBUTION WIDTH 15.1 % (9.4-14.8)
[2019-12-02 06:00] LABS: ANION GAP 4 mmol/L (5-15); CALCIUM 8.7 mg/dL (8.5-10.1); CHLORIDE 110 mmol/L (98-107); CREATININE 0.99 mg/dL (0.7-1.3)
[2019-12-02] MEDS: LEVOTHYROXINE 25 MCG TABLET PO SCH (06:19)
[2019-12-02 07:39] VITALS: BP 102/69
[2019-12-02] MEDS: DEUTETRABENAZINE HOMEMEDPO SCH ×2 (09:00→20:14)
[2019-12-02] MEDS: BENZTROPINE 1 MG TABLET PO SCH ×2 (09:16→21:47)
[2019-12-02] MEDS: ENOXAPARIN 40 MG/0.4 ML SQ SCH (09:16)
[2019-12-02] MEDS: FAMOTIDINE 40 MG TABLET PO SCH ×2 (09:16→21:47)
[2019-12-02] MEDS: ASPIRIN 81 MG TABLET CHEW PO SCH (09:16)
[2019-12-02] MEDS: DIAZEPAM 10 MG TABLET PO SCH ×3 (09:16→21:47)
[2019-12-02] MEDS: NICOTINE 21 MG/24 HR PATCH.TD24 TD SCH (09:16)
[2019-12-02] MEDS: PAROXETINE 20 MG TABLET PO SCH (09:16)
[2019-12-02] MEDS: FLUTICASONE/VILANTEROL 100-25MCG/INH INH SCH (09:27)
[2019-12-02] MEDS: TIOTROPIUM BROMIDE 18 MCG/INH INH SCH (09:27)
[2019-12-02] MEDS: MAGNESIUM HYDROXIDE 8%, 30ML UDC PO PRN (09:38)
[2019-12-02 12:50] VITALS: BP 102/65
[2019-12-02 21:45] VITALS: BP 107/71
[2019-12-02] MEDS: OLANZAPINE 10 MG TABLET PO SCH (21:47)
[2019-12-03 01:45] VITALS: BP 104/70
[2019-12-03] MEDS: LEVOTHYROXINE 25 MCG TABLET PO SCH (05:21)
[2019-12-03 06:17] LABS: ANION GAP 4 mmol/L (5-15); CALCIUM 8.9 mg/dL (8.5-10.1); CHLORIDE 108 mmol/L (98-107); CREATININE 1.04 mg/dL (0.7-1.3)
[2019-12-03 07:45] VITALS: BP 94/62
[2019-12-03] MEDS: DIAZEPAM 10 MG TABLET PO SCH ×3 (07:57→21:58)
[2019-12-03] MEDS: BENZTROPINE 1 MG TABLET PO SCH ×2 (07:58→21:58)
[2019-12-03] MEDS: ASPIRIN 81 MG TABLET CHEW PO SCH (07:58)
[2019-12-03] MEDS: ENOXAPARIN 40 MG/0.4 ML SQ SCH (07:58)
[2019-12-03] MEDS: PAROXETINE 20 MG TABLET PO SCH (07:58)
[2019-12-03] MEDS: FAMOTIDINE 40 MG TABLET PO SCH ×2 (07:58→21:58)
[2019-12-03] MEDS: NICOTINE 21 MG/24 HR PATCH.TD24 TD SCH (07:59)
[2019-12-03] MEDS: FLUTICASONE/VILANTEROL 100-25MCG/INH INH SCH (08:13)
[2019-12-03] MEDS: DEUTETRABENAZINE HOMEMEDPO SCH ×2 (09:00→21:00)
[2019-12-03] MEDS: TIOTROPIUM BROMIDE 18 MCG/INH INH SCH (10:16)
[2019-12-03 14:32] VITALS: BP 96/67
[2019-12-03 18:56] VITALS: BP 90/54
[2019-12-03] MEDS: OLANZAPINE 10 MG TABLET PO SCH (21:58)
[2019-12-04 00:38] VITALS: BP 103/69
[2019-12-04] MEDS: LEVOTHYROXINE 25 MCG TABLET PO SCH (04:56)
[2019-12-04 08:13] VITALS: BP 109/67
[2019-12-04] MEDS ORDERED: DIAZEPAM 5 MG TABLET ONE ×2 (08:55→16:19)
[2019-12-04] MEDS: DEUTETRABENAZINE HOMEMEDPO SCH ×2 (09:07→21:00)
[2019-12-04] MEDS: NICOTINE 21 MG/24 HR PATCH.TD24 TD SCH (09:07)
[2019-12-04] MEDS: BENZTROPINE 1 MG TABLET PO SCH ×2 (09:08→21:04)
[2019-12-04] MEDS: ASPIRIN 81 MG TABLET CHEW PO SCH (09:08)
[2019-12-04] MEDS: FAMOTIDINE 40 MG TABLET PO SCH ×2 (09:08→21:04)
[2019-12-04] MEDS: ACETAMINOPHEN 325 MG TABLET PO PRN (09:09)
[2019-12-04] MEDS: ENOXAPARIN 40 MG/0.4 ML SQ SCH (09:09)
[2019-12-04] MEDS: DIAZEPAM 10 MG TABLET PO SCH ×2 (09:09→16:28)
[2019-12-04] MEDS: PAROXETINE 20 MG TABLET PO SCH (09:09)
[2019-12-04] MEDS: FLUTICASONE/VILANTEROL 100-25MCG/INH INH SCH (09:10)
[2019-12-04] MEDS: TIOTROPIUM BROMIDE 18 MCG/INH INH SCH (09:10)
[2019-12-04 14:13] VITALS: BP 110/62
[2019-12-04 20:05] VITALS: BP 100/64
[2019-12-04] MEDS: OLANZAPINE 10 MG TABLET PO SCH (21:04)
[2019-12-05] MEDS ORDERED: DIAZEPAM 5 MG TABLET ONE ×3 (00:57→16:59)
[2019-12-05] MEDS: DIAZEPAM 10 MG TABLET PO SCH ×3 (01:00→17:00)
[2019-12-05 01:02] VITALS: BP 106/64
[2019-12-05 05:03] LABS: CREATININE 0.96 mg/dL (0.7-1.3)
[2019-12-05] MEDS: LEVOTHYROXINE 25 MCG TABLET PO SCH (05:25)
[2019-12-05] MEDS: TIOTROPIUM BROMIDE 18 MCG/INH INH SCH (07:52)
[2019-12-05] MEDS: FLUTICASONE/VILANTEROL 100-25MCG/INH INH SCH (07:52)
[2019-12-05] MEDS: ENOXAPARIN 40 MG/0.4 ML SQ SCH (07:52)
[2019-12-05] MEDS: PAROXETINE 20 MG TABLET PO SCH (07:53)
[2019-12-05] MEDS: BENZTROPINE 1 MG TABLET PO SCH (07:53)
[2019-12-05] MEDS: ASPIRIN 81 MG TABLET CHEW PO SCH (07:53)
[2019-12-05] MEDS: NICOTINE 21 MG/24 HR PATCH.TD24 TD SCH (07:53)
[2019-12-05] MEDS: FAMOTIDINE 40 MG TABLET PO SCH (07:53)
[2019-12-05 08:14] VITALS: BP 102/68
[2019-12-05] MEDS: DEUTETRABENAZINE HOMEMEDPO SCH (09:00)
[2019-12-05 12:31] VITALS: BP 109/73
[2019-12-05] MEDS ORDERED: OLAN10TA9 PO (15:58)
[2019-12-05] MEDS ORDERED: ASPI-515 PO (15:58)
[2019-12-05] MEDS ORDERED: BENZ1TAB61 PO (15:58)
== END 2019-12-05 17:54 | disposition home or self-care (01) | DRG 190 ==
LOC: ED 11:18 → EDIP 12:08 → 4WST 13:24 → 4NW 12-04 05:19
PROVIDERS: ADMIT Internal Medicine; ATTEND Hospitalist
DX: I21.A1 Myocardial infarction type 2 (principal); E86.0 Dehydration; E03.9 Hypothyroidism, unspecified; E87.6 Hypokalemia; J44.9 Chronic obstructive pulmonary disease, unspecified; I95.1 Orthostatic hypotension; I50.32 Chronic diastolic (congestive) heart failure; G47.00 Insomnia, unspecified; G24.01 Drug induced subacute dyskinesia; F25.0 Schizoaffective disorder, bipolar type; F17.210 Nicotine dependence, cigarettes, uncomplicated; E43 Unspecified severe protein-calorie malnutrition; F12.90 Cannabis use, unspecified, uncomplicated; R29.6 Repeated falls; Z81.8 Family history of other mental and behavioral disorders; Z79.899 Other long term (current) drug therapy; Z68.25 Body mass index [BMI] 25.0-25.9, adult; Z90.49 Acquired absence of other specified parts of digestive tract
CPT/HCPCS: 36415; 71045; 78452; 80048; 80053; 81001; 82565; 83605; 83735; 84443; 84484; 85025; 85520; 87086; 93005; 93017; 93306; 93880; 96360; 99285; G0378; J1644; J1650; J2785; A9502; J2060; J7030

== ENCOUNTER 2020-08-03 14:08 | Emergency (ER) | payer MEDICAID ==
[~2020-08-03] VITALS: Ht 177.8 cm; Wt 100.0 kg
[~2020-08-03 14:08] MED LIST changes: +ASPI-963 PO; +BENZ1TAB61 PO; -CYCL-259 PO; +CYCL10TA2 PO; -NICO-487 TD; +NICO-587 TD; +OLAN10TA9 PO
--- NOTE | 2020-08-03 14:14 | NUR ---
PER PT "I HEAR VOICES, THAT TELLS ME THIS ISN'T THE RIGHT PLACE TO BE" PT STATES HE ALWAYS HEARS VOICES.
--- NOTE | 2020-08-03 14:14 | NUR ---
PT YUAN FROM [facility]. FROM [facility] PUT PATIENT ON LEGAL HOLD AND SENT PATIENT HERE TO "GET MEDICATION SORTED OUT" PT HAD APPARENTLY BEEN TAKING 3-4 DAYS OF MEDICATION PER DAY AND PT HAS BEEN HAVING ALTERED MENTAL STATUS. TINO HENRIQUEZ AT BEDSIDE FOR EVALUATION. PT DENIES TAKING MORE MEDICATION THAN HE SHOULD. PT STATES HE CAME HERE VOULNTARY. PT DENIES HI/SI. HX OF DEPRESSION, PARANOID SCHIZOPHRENIA, ASTHEMA, HLD, AND HNT.
--- NOTE | 2020-08-03 14:35 | NUR ---
CASSANDRA, CIRO Miller at bedside for eval. Awaiting orders.
[2020-08-03 15:14] VITALS: BP 133/78
--- NOTE | 2020-08-03 15:31 | NUR ---
Patient/Caregiver given discharge instructions and they have confirmed that they understand the instructions. Patient ambulatory with steady gait.
== END 2020-08-03 15:32 | disposition home or self-care (01) ==
LOC: ED 15:24
DX: F20.89 Other schizophrenia (principal); I10 Essential (primary) hypertension
CPT/HCPCS: 99283